=== PATIENT | male | born 1970 | race Caucasian/White ===

== ENCOUNTER 2017-08-13 14:47 | Emergency (ER) | payer BC ==
[2017-08-13 15:20] VITALS: BP 137/90; PULSE 84; TEMP 98.2; BMI 27.1
[2017-08-13] MEDS ORDERED: DIPHTH,PERTUSS(ACELL),TET 0.5 ML DISP.SYRIN IM ONE (15:30)
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
[2017-08-13] MEDS ORDERED: IBUPROFEN 600 MG TABLET (FP) PO ONE ×3 (16:02→16:06)
== END 2017-08-13 17:41 | disposition home or self-care (01) ==
LOC: JERFT 14:47
PROC: 2W3KX1Z Immobilization of Left Finger using Splint (ICD-10-PCS; principal; 2017-08-13)
PROC: 0HQGXZZ Repair Left Hand Skin, External Approach (ICD-10-PCS; 2017-08-13)
DX: S61.102A Unspecified open wound of left thumb with damage to nail, initial encounter (principal); W29.8XXA Contact with other powered hand tools and household machinery, initial encounter; Y93.89 Activity, other specified; Y92.9 Unspecified place or not applicable
CPT/HCPCS: 73140-TC-LT; 90715; 99281-25

== ENCOUNTER 2019-09-23 04:36 | Day surgery (SDC) | payer BC ==
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
--- NOTE | 2019-09-23 04:44 | PDOC ---
History of Present Illness - General Stated Complaint: ABD PAIN Time Seen by Provider: 09/23/19 04:43 Past History - Past Medical History Allergies/Adverse Reactions: Allergies Allergy/AdvReac Type Severity Reaction Status Date / Time No Known Allergies Allergy Unverified 08/06/14 14:21 Home Medications: Ambulatory Orders Cephalexin [Keflex] 1,000 mg PO BID #40 capsule 08/13/17 Oxycodone HCl/Acetaminophen [Percocet 5-325 mg Tablet] 1 - 2 tab PO Q4H #24 tablet MDD 10 08/13/17 - Psycho Social/Smoking Cessation Hx Smoking History: Never smoked Hx Alcohol Use: No Drug/Substance Use Hx: No Substance Use Type: None
[2019-09-23 04:47] VITALS: BMI 37.8
--- NOTE | 2019-09-23 04:49 | PDOC ---
Attending Attestation - Resident Resident Name: Mary Michelle - ED Attending Attestation I have performed the following: I have examined & evaluated the patient, The case was reviewed & discussed with the resident, I agree w/resident's findings & plan - HPI HPI: 09/23/19 06:26 see resident hpi - Physicial Exam PE: 09/23/19 06:26 agree with resident exam - Medical Decision Making 09/23/19 [id number] male with right lower quadrant and right testicular pain Plan for CT scan abdomen and pelvis as well as testicular ultrasound Differential is kidney stone versus hernia versus appendicitis
[2019-09-23] MEDS ORDERED: ONDANSETRON 4 MG/2 ML VIAL IVPUSH ONE (05:05)
[2019-09-23] MEDS ORDERED: ACETAMINOPHEN 1000 MG/100 ML VIAL (NON FORMULARY) IVPB ONE (05:05)
[2019-09-23] MEDS ORDERED: SODIUM CHLORIDE 1,000 ML IV STA (05:05)
[2019-09-23] MEDS ORDERED: ACETAMINOPHEN INJECTION 100 ML IVPB ONE (05:16)
[2019-09-23] MEDS ORDERED: ONDANSETRON 4 MG/2 ML VIAL ONE (05:16)
[2019-09-23 05:33] LABS: BASO % 0.4 % (0-2.0); HEMATOCRIT 41.5 % (35.4-49); HEMOGLOBIN 14.6 GM/dL (11.7-16.9); LYMPH % 13.5 % (8-40); MCH 29.8 pg (25.7-33.7); MCHC 35.1 g/dl (32.0-35.9); MEAN PLT VOLUME 7.2 fl (7.5-11.1); MONO % 8.9 % (3.8-10.2); NEUT % 76.2 % (42.8-82.8); PLATELET COUNT 241 K/MM3 (134-434); RBC 4.88 M/mm3 (4.00-5.60); RDW 13.1 % (11.9-15.9); WHITE BLOOD COUNT 9.4 K/mm3 (4.0-10.0)
[2019-09-23 06:00] LABS: ALBUMIN 3.9 g/dl (3.4-5.0); BILIRUBIN,TOTAL 0.6 mg/dL (0.2-1); BLOOD UREA NITROGEN 14.5 mg/dL (7-18); CALCIUM 8.8 mg/dL (8.5-10.1); TOT PROT 6.4 g/dl (6.4-8.2)
[2019-09-23] MEDS ORDERED: PIPERACILLIN/TAZOB 3.375 GM 4.5 GM in DEXTROSE 5%-WATER - 50 ML IVPB ONE (06:30)
[2019-09-23] MEDS ORDERED: PIPERACILLIN/TAZOB 4.5 GM 4.5 GM/100 ML BAG IVPB ONE (06:43)
[2019-09-23] MEDS ORDERED: SODIUM CHLORIDE 1,000 ML IV SCH (06:45)
[2019-09-23] MEDS ORDERED: LACTATED RINGERS SOLUTION 1,000 ML/1,000 ML INFUS.BAG IV SCH (07:00)
[2019-09-23 09:07] LABS: INR 1.08 (0.83-1.09); PROTHROMBIN TIME (PATIENT) 12.8 SEC (9.7-13.0)
[2019-09-23] MEDS ORDERED: BUPIVACAINE HCL/PF 0.5% (5 MG/ML) 30 ML VIAL IJ ONE ×3 (12:08→16:15)
[2019-09-23] MEDS ORDERED: BENZOIN TINCTURE SWABSTICK TP ONE ×3 (12:28→16:21)
[2019-09-23 13:31] LABS: PH,URINE 7.5 (5.0-8.0); URINE APPEARANCE CLEAR; URINE BILIRUBIN NEGATIVE (NEGATIVE); URINE COLOR YELLOW; URINE GLUCOSE (UA) NEGATIVE (NEGATIVE); URINE KETONE NEGATIVE (NEGATIVE); URINE LEUK ESTERASE NEGATIVE (NEGATIVE); URINE NITRITE NEGATIVE (NEGATIVE); URINE PROTEIN NEGATIVE (NEGATIVE)
[2019-09-23] MEDS ORDERED: fentaNYL CITRATE 250 MCG/5 ML VIAL ONE (14:04)
[2019-09-23] MEDS ORDERED: PROPOFOL 20 ML ONE (14:04)
[2019-09-23] MEDS ORDERED: ROCURONIUM BROMIDE 50 MG/5 ML SYRINGE ONE (14:04)
[2019-09-23] MEDS ORDERED: MIDAZOLAM HCL 2 MG/2 ML SINGLE DOSE VIAL ONE (14:05)
[2019-09-23] MEDS ORDERED: PIPERACILLIN/TAZOB 4.5 GM 4.5 GM in DEXTROSE 5%-WATER 100 ML IVPB ONE (14:30)
[2019-09-23] MEDS ORDERED: ONDANSETRON 4 MG/2 ML VIAL IVPUSH PRN ×2 (14:38→17:23)
[2019-09-23] MEDS ORDERED: LACTATED RINGERS SOLUTION 1,000 ML IV SCH (14:45)
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
--- NOTE | 2019-09-23 15:01 | EKG ---
Test Reason : Blood Pressure : / mmHG Vent. Rate : 069 BPM Atrial Rate : 069 BPM P-R Int : 154 ms QRS Dur : 078 ms QT Int : 404 ms P-R-T Axes : 012 -05 -02 degrees QTc Int : 432 ms NORMAL SINUS RHYTHM NORMAL ECG NO PREVIOUS ECGS AVAILABLE Confirmed by JEANA HORAN MD ([id number]) on 09/23/2019 3:01:13 PM Referred By: MADDY WILLIAM Confirmed By:JEANA HORAN MD
[2019-09-23] MEDS ORDERED: PIPERACILLIN/TAZOBACTAM 4.5 GM VIAL IVPB ONE (15:10)
[2019-09-23] MEDS ORDERED: DESFLURANE GAS 240 ML BOTTLE IH ONE (15:45)
[2019-09-23] MEDS ORDERED: GLYCOPYRROLATE 0.2 MG/1 ML VIAL ONE (16:14)
[2019-09-23] MEDS ORDERED: NEOSTIGMINE METHYLSULFATE 0.5 MG/ML - 10 ML MDV ONE (16:14)
[2019-09-23] MEDS ORDERED: IBUPROFEN 800 MG/8 ML IJ IVPB ONE ×3 (16:49→17:23)
--- NOTE | 2019-09-23 16:58 | OP ---
Operative Note - Note: Operative Date: 09/23/19 Pre-Operative Diagnosis: acute appendicitis Operation: laparoscopic appendectomy Findings: inflamed appendix, retrocecal, base normal, tip firm/inflamed; no fluid in pelvis noted Post-Operative Diagnosis: Same as Pre-op Surgeon: Ramesh Hitchcock Netsuite Developer: Boris Bhandari ([id number]) Anesthesiologist/CITY PLANNING AIDE: Freddy Interiano (w/Guon) Anesthesia: General, Local (20ml 0.5% marcaine) Specimens Removed: appendix to pathology Estimated Blood Loss (mls): 5 Drains & Tubes with Location: Garcia out at case end Drains, Volume Out (mls): 300 (UOP) Fluid Volume Replaced (mls): 1,200 (crystalloid) Operative Report Dictated: Yes
[2019-09-23] MEDS: LACTATED RINGERS SOLUTION 1,000 ML IV SCH ×2 (20:52→22:28)
[2019-09-23] MEDS: ACETAMINOPHEN 325 MG TABLET (FP) PO SCH (20:53)
[2019-09-23] MEDS ORDERED: ACETAMINOPHEN 325 MG TABLET (FP) PO SCH (21:00)
--- NOTE | 2019-09-23 21:23 | OP ---
DATE OF OPERATION: 09/23/2019 PREOPERATIVE DIAGNOSIS: Acute appendicitis. POSTOPERATIVE DIAGNOSIS: Acute appendicitis. PROCEDURE: Laparoscopic appendectomy. SURGEON: Ramesh Hitchcock MD AWNING FRAME MAKER: Boris Bhandari MS3 ANESTHESIA: General endotracheal and local, 20 mL of 0.5% Marcaine. ESTIMATED BLOOD LOSS: 5 mL FLUIDS: 1200 mL of crystalloid. URINE OUTPUT: 300 mL (Garcia out at end of case). SPECIMEN: Appendix to Pathology. FINDINGS: Inflamed, retrocecal appendix with normal base and firm/inflamed tip. No fluid was noted in the pelvis. DISPOSITION: Stable and extubated to PACU. INDICATIONS FOR PROCEDURE: The patient is a 49-year-old obese male with a history of right testicular trauma and right hydrocele repair years later, as well as right -sided kidney stones status post lithotripsy, and spinal disc issues, who presented to the emergency room with right flank and right lower quadrant pain radiating to the groin and genital area, which woke him around 2 a.m. this morning. He had no significant associated symptoms, other than some mild nausea that started in the ER. Ultrasound of the scrotum was done, showing no torsion. CT scan then showed acute appendicitis, and a right inguinal hernia containing a portion of the bladder. He was given IV fluids and started on Zosyn. Risks, benefits, and alternatives of laparoscopic, possible open appendectomy were discussed with the patient, including, but not limited to, bleeding, infection, injury to adjacent structures, intestinal leak or injury, intraabdominal abscess, incisional hernia, need for further procedures and alternatives, inclusive of antibiotics with delayed or no surgery, potentially resulting in failure of nonoperative therapy, perforation, sepsis, recurrence, or . The patient desired to proceed with the operation, signed informed consent for the same, and is now brought to the OR for this procedure. OPERATIVE TECHNIQUE: The patient was brought to the operating room and laid supine on the operating table. Sequential compression devices were applied to bilateral lower extremities, and his 2nd dose of Zosyn was given in the operating room immediately prior to procedure. After induction and intubation by Anesthesia, his lower abdomen was clipped of hair, prepped, and draped in sterile fashion, and a Garcia catheter was placed in the patient's bladder. A small infraumbilical midline incision was made with a scalpel and carried into the subcutaneous tissues with electrocautery, until the abdominal wall fascia was identified, scored, and elevated with Bernie clamps. The peritoneum was entered bluntly with the tip of a clamp, and a fingertip inserted to ensure entry into the abdominal cavity and the absence of any underlying adhesions. A stay suture of 0 Vicryl in [id number] fashion was placed in the fascia for later closure, and the Andre port introduced directly into the abdominal cavity. The abdomen was insufflated with carbon dioxide, the patient was placed in Trendelenburg position, and a laparoscope was inserted to inspect the abdominal cavity. There was no fluid noted in the pelvis, although given the patient's body habitus and obesity, it was somewhat difficult to completely empty the pelvis of the fatty tissues. The patient was planed back into less deep Trendelenburg and tilted with the right side somewhat upward. Two additional 5-mm ports were placed in the left lower quadrant and suprapubic areas under direct vision, and the camera moved to the left lower quadrant port. The cecum was identified in the right lower quadrant, and the appendix then also identified with the base appearing normal, where it came off of the cecum. It was followed around retrocecally and noted to have a firm, inflamed tip, with the remainder of the appendix appearing mildly inflamed as well, except toward the base. A window was created in the base of the appendix where it joined the cecum with a Maryland dissector, and it was transected there with a 45 purple load of the EndoGIA stapler. The remaining appendix was then held up, and a 60 white load of the EndoGIA stapler used to transect most of the mesoappendix directly underneath the appendix. A small bit of fatty mesenteric tissue remained attached, and this was finally transected with an additional 45 load of the white stapler. The appendix specimen was set aside in the right lower quadrant momentarily, while the suction/supervisor die casting was used to suction blood from the operative field. The staple lines were inspected for hemostasis , and a couple of very small spots on the cecal staple line were touched with the Maryland dissector attached to electrocautery with no further oozing. Again, the pelvis was inspected and there was no fluid noted. The mesenteric tissues were tucked back into the right lower quadrant over the operative area. The appendix was then placed in an EndoCatch bag and drawn up into the Andre trocar at the umbilical site. The suprapubic port was removed under direct vision. The Andre and appendix in bag were removed together, also under direct vision, and then the laparoscope and left lower quadrant port withdrawn as well. The patient was returned to neutral position. The abdomen was exsufflated of carbon dioxide, the specimen was passed off for pathology, and the stay suture at the umbilicus was tied to close the fascia there. Hemostasis was achieved at the port sites with electrocautery where necessary. Local anesthetic was infiltrated into all the port sites. The skin was then closed with 4-0 Vicryl subcuticular sutures, including a running at the umbilicus. Benzoin and Steri-Strips were placed over each incision, and dressings of gauze and Tegaderm were placed over these. The Garcia catheter was then removed from the patient's bladder at the end of the case. Counts were correct at the end of the procedure. The patient was then awakened and extubated by Anesthesia. He was able to move himself back onto a stretcher, and was taken to the recovery room in stable condition, having tolerated the procedure well. Ramesh Hitchcock M.D. [id number] MTDD
[2019-09-24] MEDS ORDERED: IBUPROFEN 600 MG TABLET (FP) PO SCH
[2019-09-24] MEDS: ACETAMINOPHEN 325 MG TABLET (FP) PO SCH ×2 (03:04→09:23)
[2019-09-24] MEDS: IBUPROFEN 600 MG TABLET (FP) PO SCH ×3 (06:00→12:06)
--- NOTE | 2019-09-24 12:40 | DS ---
Physical Examination Vital Signs: Vital Signs Temperature 98.3 F 09/24/19 06:53 Pulse Rate 70 09/24/19 06:53 Respiratory Rate 18 09/24/19 06:53 Blood Pressure 101/63 09/24/19 06:53 O2 Sat by Pulse Oximetry (%) 96 09/24/19 09:00 Findings/Remarks: Pt seen and examined in room, ambulating well. Voiding and passing gas, no BM yet. Tolerating diet. Pain mild at umbilical incisional site, managed well with nonnarcotics. No specific complaints. Constitutional: Yes: No Distress, Calm, Obese Eyes: Yes: Conjunctiva Clear, EOM Intact HENT: Yes: Atraumatic, Normocephalic Cardiovascular: Yes: Regular Rate and Rhythm Respiratory: Yes: Regular, CTA Bilaterally Gastrointestinal: Yes: Normal Bowel Sounds, Soft, Abdomen, Obese, Distention ( mild), Tenderness (mild umbilical incisional, minimal RLQ (feels pressure on bladder)) Renal/: No: CVA Tenderness - Left, CVA Tenderness - Right Extremities: No: Cool, Cyanosis Integumentary: Yes: Incision (x3 dressed). No: Jaundice, Rash Wound/Incision: Yes: Steri Strips (under dressings), Dressing Dry and Intact (x3 ). No: Dressing Removed Neurological: Yes: Alert, Oriented. No: Unsteady Gait Labs: no new labs Discharge Summary Problems reviewed: Yes Reason For Visit: ACUTE APPENDICITIS Current Active Problems Appendicitis, acute (Acute) Obesity (BMI 35.0-39.9 without comorbidity) (Acute) RLQ abdominal pain (Acute) Procedures: Principal: laparoscopic appendectomy Hospital Course: 49yo obese M admitted through ER with hours of RLQ/R flank pain radiating to groin/genitals, afebrile with normal wbc, found to have acute appendicitis on CT. He was taken for uneventful laparoscopic appendectomy and received two doses of Zosyn prior to OR. Postop, he has done well, is ambulating and voiding , tolerating diet, and pain is controlled with alternating tylenol and ibuprofen. Incisional dressings are c/d/i. He is discharged home with lifting restrictions to follow up in 2 weeks, as well as with PMD. Time spent on discharge: 35 minutes. Condition: Good - Instructions Diet, Activity, Other Instructions: Postoperative instructions: You had a laparoscopic appendectomy on 09/23/[address] Ramesh Hitchcock of [facility]. Activity: Resume your usual activities gradually, but no heavy exertion or lifting more than 10-15 pounds for 1 month. Remove dressings 48 hours after surgery; sticky tapes underneath will fall off by themselves. You may shower daily starting then, just pat the incision areas dry. No bath or swimming until skin incisions have healed. Eat lightly at first, but advance to your usual diet as tolerated. Pain: For pain, you may use and alternate Tylenol (acetaminophen) 1-2 pills and/ or ibuprofen 200 mg (1-3 pills) every 6 hours each as needed; this means that you can take one OR the other at 3-hour intervals. Do not take more than 4000mg of acetaminophen in a day. Take medications as prescribed or indicated on the labeling. Follow-up: Call Dr. Hitchcock's office at [phone] to make your postop appointment (Friday in approximately 2 weeks after surgery). Clinic is held in the [facility] on the first floor of [facility]. Call the office if you have: * increasing pain not responsive to pain medication * fever of 101F or higher * vomiting * unusual or increasing bleeding or drainage from wounds * increasing redness or swelling at wound sites Also, see your primary medical doctor within 1-2 weeks. Referrals: Ramesh Hitchcock MD [Staff Physician] - Michael Ng MD [Primary Care Provider] - Disposition: HOME - Home Medications Comprehensive Discharge Medication List: Ambulatory Orders RX: Acetaminophen [Tylenol .Regular Strength -] 650 mg PO Q6H tablet 09/24/19 RX: Ibuprofen [Motrin -] 600 mg PO Q6H tablet 09/24/19
[2019-09-24 12:43] VITALS: BP 111/58; PULSE 72; TEMP 98.1
--- NOTE | 2019-09-27 17:51 | PATH ---
Surgical Pathology Report Patient Name: JHONATAN GALARZA [facility]. Rec. #: [id number] /Age/Gender: 1970 (Age: 49) / M Account: [id number] Location: AMBULATORY SURG Taken: 09/23/2019 Received: 09/24/2019 Reported: 09/27/2019 Physicians: Ramesh Hitchcock M.D. Specimen(s) Received APPENDIX Clinical History Acute appendicitis Final Diagnosis APPENDIX, APPENDECTOMY: ACUTE APPENDICITIS AND PERIAPPENDICITIS. Electronically Signed Antonella Lopez M.D. Gross Description Received in formalin, labeled "appendix," is a 6 cm. in length vermiform appendix with a stapled margin of resection and moderate attached fat. The serosa is salazar-lamb with focal attached exudate. Sectioning reveals a hemorrhagic lumen. The wall of the appendix averages 0.1 cm. in thickness. Camp Advisor sections are submitted in one cassette. /09/24/2019 saudi/09/24/2019
== END 2019-09-24 13:44 | disposition home or self-care (01) ==
LOC: JER 04:36 → JASUSAT 06:53 → J8W 18:18 → JASUSAT 09-24 13:44
PROVIDERS: ATTEND Surgery
PROC: 0DTJ4ZZ Resection of Appendix, Percutaneous Endoscopic Approach (ICD-10-PCS; principal; 2019-09-23 14:30)
DX: K35.80 Unspecified acute appendicitis (principal); K40.90 Unilateral inguinal hernia, without obstruction or gangrene, not specified as recurrent
CPT/HCPCS: 36415; 74176-TC; 76870-TC; 80053; 81003; 85025; 85610; 86850; 86900; 86901; 88304-TC; 93005; 93010; 94010; 94760; 99285-25; J0131; J7030

== ENCOUNTER 2020-06-25 02:43 | Emergency (ER) | payer BC ==
--- NOTE | 2020-06-25 02:51 | PDOC ---
History of Present Illness - General Stated Complaint: ABD CRAMPS/VOMITING Time Seen by Provider: 06/25/20 02:50 History Source: Patient Exam Limitations: No Limitations - History of Present Illness Initial Comments: 06/25/20 02:51 50yM w PMHx of nephrolithiasis s/p stent, appendectomy, R testicular hydrocele removal presenting w 2 vomiting episodes and mild epigastric pain 1hr prior to arrival. Ate restaurant food last night. Had 2 BMs before going to ED. Didnt take any meds for symptoms. Denies fever, cough, chest pain, SOB, dysuria. Past History - Medical History Allergies/Adverse Reactions: Allergies Allergy/AdvReac Type Severity Reaction Status Date / Time No Known Allergies Allergy Verified 09/23/19 04:47 Home Medications: Ambulatory Orders Acetaminophen [Tylenol .Regular Strength -] 650 mg PO Q6H tablet 09/24/19 Ibuprofen [Motrin -] 600 mg PO Q6H tablet 09/24/19 Ondansetron [Zofran *Odt*] 4 mg SL TID #10 od.tablet 06/25/20 COPD: No - Surgical History Appendectomy: Yes (Laparoscopic 09/23/19) - Psycho-Social/Smoking History Smoking History: Never smoked Have you smoked in the past 12 months: No Review of Systems - Review of Systems Constitutional: No: Chills, Fever HEENTM: No: Eye Pain, Nose Congestion Respiratory: No: Cough, Shortness of Breath Cardiac (ROS): No: Chest Pain, Palpitations ABD/GI: Yes: Nausea, Vomiting. No: Constipated, Diarrhea : No: Burning, Dysuria Musculoskeletal: No: Back Pain, Joint Pain Integumentary: No: Bruising, Flushing Neurological: No: Headache, Seizure Psychiatric: No: Anxiety, Depression Endocrine: No: Intolerance to Cold, Intolerance to Heat Hematologic/Lymphatic: No: Anemia, Blood Clots *Physical Exam - Physical Exam General Appearance: Yes: Nourished, Appropriately Dressed, Mild Distress HEENT: positive: EOMI, MIGEL, Normal Voice, Hearing Grossly Normal. negative: Scleral Icterus (R), Scleral Icterus (L) Respiratory/Chest: positive: Lungs Clear, Normal Breath Sounds. negative: Chest Tender, Respiratory Distress Cardiovascular: positive: Regular Rhythm, Regular Rate, S1, S2. negative: Murmur Gastrointestinal/Abdominal: positive: Normal Bowel Sounds, Tender (minimal epigastric), Flat, Soft. negative: Organomegaly Integumentary: positive: Normal Color, Warm. negative: Dry Neurologic: positive: Fully Oriented, Alert, Normal Mood/Affect, Normal Response ED Treatment Course - LABORATORY CBC & Chemistry Diagram: 06/25/20 03:20 06/25/20 03:20 Medical Decision Making - Medical Decision Making 06/25/20 03:04 ABD flat/upright XR - decompressed stomach, gas in colon/rectum, lack of small bowel gas EKG - NSR, HR 64, QTc 429, no ST changes --- 50yM w PMHx of nephrolithiasis s/p stent, appendectomy, R testicular hydrocele removal presenting w 2 vomiting episodes and mild epigastric pain 1hr prior to arrival Likely gastritis. Low concern for ACS (neg trop, NSR) vs pancreatitis (lipase wnl) vs SBO (neg XR) Given zofran, maalox, lidocaine, bentyl. Tolerated PO fluids DC home w GI referral, zofran Discharge - Discharge Information Problems reviewed: Yes Clinical Impression/Diagnosis: Gastritis Qualifiers: Gastritis type: unspecified gastritis Chronicity: acute Gastritis bleeding: without bleeding Qualified Code(s): K29.00 - Acute gastritis without bleeding Condition: Improved Disposition: HOME - Additional Discharge Information Prescriptions: Ondansetron [Zofran *Odt*] 4 mg SL TID #10 od.tablet - Follow up/Referral Referrals: Michael Ng MD [Primary Care Provider] - Magy Razo MD [Staff Physician] - - Patient Discharge Instructions Patient Printed Discharge Instructions: DI for Gastritis Additional Instructions: Your workup did not show anything concerning Take the prescribed zofran if you are vomiting Drink lots of water Follow up with the referred GI Dr Razo if you continue to have discomfort - Post Discharge Activity
[2020-06-25] MEDS ORDERED: ONDANSETRON 4 MG/2 ML VIAL IVPUSH ONE (03:02)
[2020-06-25 03:42] LABS: BASO % 0.3 % (0-2.0); EOS % 0.8 % (0-4.5); HEMATOCRIT 42.5 % (35.4-49); HEMOGLOBIN 14.7 GM/dL (11.7-16.9); MCH 29.3 pg (25.7-33.7); MCHC 34.6 g/dl (32.0-35.9); MEAN CELL VOLUME 84.8 fl (80-96); MONO % 10.4 % (3.8-10.2); NEUT % 68.5 % (42.8-82.8); PLATELET COUNT 235 K/MM3 (134-434); RBC 5.01 M/mm3 (4.00-5.60); RDW 13.3 % (11.9-15.9); WHITE BLOOD COUNT 8.9 K/mm3 (4.0-10.0)
[2020-06-25 03:58] LABS: ALBUMIN 3.8 g/dl (3.4-5.0); ALK PHOS 106 U/L (45-117); ANION GAP 7 MMOL/L (8-16); BILIRUBIN,TOTAL 0.3 mg/dL (0.2-1); BLOOD UREA NITROGEN 14.6 mg/dL (7-18); CHLORIDE 105 mmol/L (98-107); CO2 28 mmol/L (21-32); CREATININE 1.1 mg/dL (0.55-1.3); GLUCOSE,RANDOM 152 mg/dL (74-106); POTASSIUM 4.2 mmol/L (3.5-5.1); SGOT/AST 17 U/L (15-37); SODIUM 140 mmol/L (136-145)
[2020-06-25] MEDS ORDERED: MAG HYDROX/AL HYDROX/SIMETH 30 ML UNIT-DOSE CUP PO ONE (04:28)
[2020-06-25] MEDS ORDERED: LIDOCAINE VISCOUS 2% ORAL/TOP 20 ML UNIT-DOSE CUP MM ONE (04:28)
[2020-06-25] MEDS ORDERED: DICYCLOMINE HCL 20 MG TABLET PO ONE (04:30)
[2020-06-25] MEDS ORDERED: LIDOCAINE VISCOUS 2% ORAL/TOP 20 ML UNIT-DOSE CUP ONE (04:34)
[2020-06-25] MEDS ORDERED: MAG HYDROX/AL HYDROX/SIMETH 30 ML UNIT-DOSE CUP ONE (04:35)
[2020-06-25] MEDS ORDERED: DICYCLOMINE HCL 10 MG CAPSULE ONE (04:36)
--- NOTE | 2020-06-25 04:48 | PDOC ---
Attending Attestation - Resident Resident Name: Jakob Fink - ED Attending Attestation I have performed the following: I have examined & evaluated the patient, The case was reviewed & discussed with the resident, I agree w/resident's findings & plan - HPI HPI: 06/25/20 04:44 Pt comes with epigastric pain that comes in waves. Pt ate out today and he vomited 2x and he had diarrhea. Possible food poisoning. Pt is obese Pt has a hx of inguinal hernia repair Pt has no flank pain no dysuria He is worried that this may be a kidney stone - Physicial Exam PE: 06/25/20 04:46 Normal exam Normal HEENT normal heart and lungs Pt has epigastric pain. No RUQ pain No flank pain - Medical Decision Making 06/25/20 04:47 labs normal Pt has slight elevation of blood sugar to 150 Pt needs Abd XR flat and upright Pt awaiting UA results 06/25/20 06:33 Patient Name: JHONATAN GALARZA THIS IS A PRELIMINARY REPORT DATE OF SERVICE: 2020-06-25 04:05:38 IMAGES: 6 EXAM: ABDOMEN FLAT \T\ UPRIGHT HISTORY: Small bowel obstruction. 50-year-old male. COMPARISON: None. FINDINGS: The heart is of normal size. The lung bases are clear. No visible solid organ enlargement. The retroperitoneal fat planes are poorly seen because of the large body habitus. A decompressed stomach and colon are noted. Gas is seen in the rectum. No significant stool burden. There is a distinct lack of small bowel gas. IMPRESSION: Decompressed stomach. Gas is seen in the colon and rectum. The lack of small bowel gas can be associated with decompressed small bowel or fluid-filled loops of small bowel. Pt feels better and he will be sent home Pt can return if his pain gets worse No need fro CT scan at this time LIkely food poisoning caused this effect Discharge - Discharge Information Problems reviewed: Yes Clinical Impression/Diagnosis: Gastritis Qualifiers: Gastritis type: unspecified gastritis Chronicity: acute Gastritis bleeding: without bleeding Qualified Code(s): K29.00 - Acute gastritis without bleeding Condition: Improved Disposition: HOME - Additional Discharge Information Prescriptions: Ondansetron [Zofran *Odt*] 4 mg SL TID #10 od.tablet - Follow up/Referral Referrals: Magy Razo MD [Staff Physician] - Michael Ng MD [Primary Care Provider] - - Patient Discharge Instructions Patient Printed Discharge Instructions: DI for Gastritis Additional Instructions: Your workup did not show anything concerning Take the prescribed zofran if you are vomiting Drink lots of water Follow up with the referred GI Dr Razo if you continue to have discomfort - Post Discharge Activity
[2020-06-25 05:03] LABS: EPI CELLS 11 /uL (0-25.1); HYALINE CASTS 2 /uL (0-3.1); PH,URINE 6.5 (5.0-8.0); URINE APPEARANCE CLEAR; URINE BACTERIA 31 /uL (0-1359); URINE BILIRUBIN NEGATIVE (NEGATIVE); URINE COLOR YELLOW; URINE GLUCOSE (UA) NEGATIVE (NEGATIVE); URINE KETONE NEGATIVE (NEGATIVE); URINE LEUK ESTERASE 1+ (NEGATIVE); URINE NITRITE NEGATIVE (NEGATIVE); URINE PROTEIN NEGATIVE (NEGATIVE); URINE RBC 4 /uL (0-23.9); URINE WBC 76 /uL (0-25.8)
[2020-06-25 05:17] VITALS: BP 153/92; PULSE 66; TEMP 97.9; BMI 30.7
[2020-06-25 06:01] LABS: SGPT/ALT 48 U/L (13-61)
--- NOTE | 2020-06-26 18:26 | EKG ---
Test Reason : Blood Pressure : / mmHG Vent. Rate : 064 BPM Atrial Rate : 064 BPM P-R Int : 158 ms QRS Dur : 076 ms QT Int : 416 ms P-R-T Axes : 022 -02 008 degrees QTc Int : 429 ms NORMAL SINUS RHYTHM NORMAL ECG WHEN COMPARED WITH ECG OF 23-SEP-2019 13:35, NO SIGNIFICANT CHANGE WAS FOUND Confirmed by LEILA ANTHONY MD ([id number]) on 06/26/2020 6:26:22 PM Referred By: Confirmed By:LEILA ANTHONY MD
== END 2020-06-25 06:42 | disposition home or self-care (01) ==
LOC: JER 02:43
PROC: 3E033GC Introduction of Other Therapeutic Substance into Peripheral Vein, Percutaneous Approach (ICD-10-PCS; principal; 2020-06-25)
DX: K29.00 Acute gastritis without bleeding (principal)
CPT/HCPCS: 36415; 74019-TC-FY; 80053; 81003; 83690; 84484; 85025; 93005; 93010; 99285-25

== ENCOUNTER 2022-01-30 12:16 | Emergency (ER) | payer BC ==
[2022-01-30 12:30] VITALS: BP 117/77; PULSE 85; TEMP 97.5; BMI 30.7
[2022-01-30] MEDS ORDERED: SILVER NITRATE 75% APPLIC STCK 1 PKT EACH ONE (13:37)
== END 2022-01-30 14:34 | disposition home or self-care (01) ==
LOC: JERFT 12:16
DX: L98.8 Other specified disorders of the skin and subcutaneous tissue (principal)
CPT/HCPCS: 99283-25

== ENCOUNTER 2024-06-06 09:11 | Emergency (ER) | payer BC ==
[2024-06-06 09:21] VITALS: RESP 18; BMI 28.8
[2024-06-06 10:02] LABS: BASO % 0.3 % (0-2.0); HEMATOCRIT 42.8 % (35.4-49); LYMPH % 7.5 % (8-40); MCH 29.6 pg (25.7-33.7); MCHC 35.1 g/dl (32.0-35.9); MEAN CELL VOLUME 84.2 fl (80-96); MONO % 12.5 % (3.8-10.2); NEUT % 79.7 % (42.8-82.8); PLATELET COUNT 218 10^3/uL (134-434); RBC 5.08 M/mm3 (4.00-5.60); RDW 13.4 % (11.9-15.9)
[2024-06-06 10:11] LABS: POTASSIUM 4.2 mmol/L (3.5-5.1)
[2024-06-06 10:14] LABS: BLOOD UREA NITROGEN 12.3 mg/dL (7-18)
[2024-06-06 10:17] LABS: CREATININE 1.3 mg/dL (0.55-1.3)
[2024-06-06 10:19] LABS: BILIRUBIN,TOTAL 1.2 mg/dL (0.2-1); TOT PROT 7.1 g/dl (6.4-8.2)
[2024-06-06 11:17] LABS: PH,URINE 5.5 (5.0-8.0); URINE APPEARANCE CLEAR; URINE BILIRUBIN NEGATIVE (NEGATIVE); URINE COLOR YELLOW; URINE GLUCOSE (UA) NEGATIVE (NEGATIVE); URINE KETONE TRACE (NEGATIVE); URINE LEUK ESTERASE NEGATIVE (NEGATIVE); URINE NITRITE NEGATIVE (NEGATIVE); URINE PROTEIN TRACE (NEGATIVE); URINE UROBILINOGEN 0.2 mg/dL (0.2-1.0)
[2024-06-06 11:26] VITALS: BP 136/56; PULSE 89; TEMP 97.8
== END 2024-06-06 12:50 | disposition home or self-care (01) ==
LOC: JER 09:11
DX: R50.9 Fever, unspecified (principal); M79.10 Myalgia, unspecified site; R19.7 Diarrhea, unspecified; R11.0 Nausea; R05.9 Cough, unspecified; B34.9 Viral infection, unspecified; Z20.822 Contact with and (suspected) exposure to COVID-19
CPT/HCPCS: 0241U-QW; 36415; 71046-TC-FY; 80053; 81003; 83690; 85025; 99283-25